=== PATIENT | male | born 1980 | race Hispanic/Latino ===

== ENCOUNTER → 2017-12-16 | Outpatient (CLI) | payer BC ==
[2017-12-16 16:37] LABS: BLOOD UREA NITROGEN 11 mg/dL (7-26); BUN/CREATININE RATIO 12 (6-25); EST GLOMERULAR FILTRATION RATE > 60 ML/MIN (60-); INR 0.86; PROTHROMBIN TIME 12.5 seconds (11.9-14.5)
[2017-12-16 17:17] LABS: ALANINE AMINOTRANSFERASE 30 IU/L (0-55); ALBUMIN 3.9 g/dL (3.5-5.0); ALKALINE PHOSPHATASE 68 IU/L (40-150); BILIRUBIN,DIRECT 0.1 mg/dL (0.0-0.5)
== END ==
LOC: LAB 15:24
PROVIDERS: ATTEND Podiatrist Foot & Ankle Surgery
DX: B35.1 Tinea unguium (principal)
CPT/HCPCS: 36415; 80076; 82565; 84520; 85610